=== PATIENT | male | born 1935 | race African-American/Black ===

== ENCOUNTER → 2017-01-21 | Outpatient (CLI) | payer OTHER | END | disposition home or self-care (01) | LOC: CFH 13:53 | PROVIDERS: ATTEND Nurse Practitioner | DX: J96.11 Chronic respiratory failure with hypoxia (principal) | CPT/HCPCS: 71250 ==

== ENCOUNTER → 2017-05-27 | Outpatient (CLI) | payer OTHER ==
[~2017-05-27] MED LIST: REGADENOSON 0.4 MG/5 ML SYRINGE ONE
== END | disposition home or self-care (01) ==
LOC: CVU 09:59
PROVIDERS: ATTEND Internal Medicine Cardiovascular Disease
DX: J96.11 Chronic respiratory failure with hypoxia (principal); I51.7 Cardiomegaly
CPT/HCPCS: 78452; 93017; 93306; A9502; J2785

== ENCOUNTER → 2017-07-27 | Outpatient (CLI) | payer OTHER | END | disposition home or self-care (01) | LOC: CVU 09:12 | PROVIDERS: ATTEND Internal Medicine Cardiovascular Disease | DX: I87.2 Venous insufficiency (chronic) (peripheral) (principal); I83.893 Varicose veins of bilateral lower extremities with other complications | CPT/HCPCS: 93970 ==

== ENCOUNTER 2017-12-12 17:51 | Inpatient (IN) | payer OTHER ==
[~2017-12-12] VITALS: Ht 180.3 cm; Wt 128.9 kg
[2017-12-12] MEDS ORDERED: PLEASE ENTER ALLERGIES MC SCH (18:30)
[2017-12-12] MEDS ORDERED: SODIUM CHLORIDE FLUSH 10ML SYR IVF ONE (18:30)
[2017-12-12 18:42] LABS: BASOPHILS # (AUTO) 0.02 x10^3/uL (0-0.1); BASOPHILS % (AUTO) 0 % (0-1); EOSINOPHILS # (AUTO) 0.14 x10^3/uL (0-0.4); EOSINOPHILS % (AUTO) 2 % (1-7); LYMPHOCYTES # (AUTO) 0.93 x10^3/uL (1-3.4); LYMPHOCYTES % (AUTO) 12 % (22-44); MD NO; MEAN CORPUSCULAR HGB CONC 33.1 g/dL (33.2-36.2); MEAN CORPUSCULAR VOLUME 90.5 fL (81-97); MEAN PLATELET VOLUME 8.5 fL (7.4-10.4); MONOCYTES # (AUTO) 0.62 x10^3/uL (0.2-0.8); MONOCYTES % (AUTO) 8 % (2-9); NEUTROPHILS % (AUTO) 77 % (42-75); PLATELET COUNT 185 x10^3/uL (130-400); RED BLOOD COUNT 4.82 x10^6/uL (4.38-5.82); RED CELL DISTRIBUTION WIDTH 14.2 % (9.4-14.8)
[2017-12-12 18:57] LABS: ALBUMIN 3.3 g/dL (3.4-5.0); ANION GAP 5 mmol/L (5-15); CALCIUM 8.4 mg/dL (8.5-10.1); CHLORIDE 111 mmol/L (98-107)
[2017-12-12 19:08] LABS: TROPONIN I 0.143 ng/mL (0.000-0.045)
[2017-12-12] MEDS ORDERED: SODIUM CHLORIDE 0.9% 1,000 ML IV SCH (19:11)
[2017-12-12] MEDS ORDERED: LABETALOL 5MG/ML, 20ML IVPush PRN (19:30)
[2017-12-12] MEDS ORDERED: ONDANSETRON ODT 4 MG PO PRN (19:30)
[2017-12-12] MEDS ORDERED: SODIUM CHLORIDE FLUSH 10ML SYR IVF PRN (19:30)
[2017-12-12] MEDS ORDERED: hydrALAzine 20 MG/ML, 1ML IVPush PRN (19:30)
[2017-12-12] MEDS ORDERED: morphine SULFATE 10 MG/ML, 1ML IVPush PRN (19:30)
[2017-12-12] MEDS ORDERED: OXYcodone IR 5MG TABLET PO PRN (19:30)
[2017-12-12] MEDS ORDERED: ONDANSETRON 2MG/ML, 2ML IVPush PRN (19:30)
[2017-12-12] MEDS ORDERED: PROMETHAZINE 25 MG/ML, 1ML IM PRN (19:30)
[2017-12-12] MEDS ORDERED: POLYETHYLENE GLYCOL 17 GM PACKET PO PRN (19:30)
[2017-12-12] MEDS ORDERED: BISACODYL 10 MG SUPP PR PRN (19:30)
[2017-12-12] MEDS ORDERED: HEPARIN 5,000 UNITS/ML, 1ML ONE (19:54)
[2017-12-12] MEDS ORDERED: HEPARIN 25,000 UNITS/500ML PMX 500 ML ONE (19:54)
[2017-12-12 20:00] LABS: FREE T4 (FREE THYROXINE) 1.03 ng/dL (0.76-1.46); THYROID STIMULATING HORMONE 1.9 mIU/L (0.358-3.740)
[2017-12-12] MEDS ORDERED: HEPARIN 5,000 UNITS/ML, 1ML IV ONE (20:00)
[2017-12-12] MEDS: HEPARIN 25,000 UNITS/500ML PMX 500 ML IV PRN (20:05)
[2017-12-12 22:00] VITALS: BP 139/90
[2017-12-12] MEDS ORDERED: [UNRECOGNIZED DRUG - REMARK] INH (22:25)
[2017-12-12 22:40] LABS: MICROSCOPIC NOT IND
[2017-12-12 22:49] LABS: CULTURE INDICATED? NO
[2017-12-12] MEDS: DILTIAZEM 125 MG in SODIUM CHLORIDE 0.9% 100 ML IV SCH (22:53)
[2017-12-12 23:13] LABS: TROPONIN I 0.149 ng/mL (0.000-0.045)
[2017-12-13] MEDS ORDERED: FUROSEMIDE 40 MG/4 ML IV ONE (02:00)
[2017-12-13 02:13] VITALS: BP 128/89
[2017-12-13 05:22] LABS: BASOPHILS # (AUTO) 0.04 x10^3/uL (0-0.1); BASOPHILS % (AUTO) 1 % (0-1); EOSINOPHILS # (AUTO) 0.25 x10^3/uL (0-0.4); EOSINOPHILS % (AUTO) 3 % (1-7); LYMPHOCYTES # (AUTO) 0.72 x10^3/uL (1-3.4); LYMPHOCYTES % (AUTO) 10 % (22-44); MD NO; MEAN CORPUSCULAR HEMOGLOBIN 29.8 pg (27.5-34.5); MEAN CORPUSCULAR HGB CONC 33.2 g/dL (33.2-36.2); MEAN CORPUSCULAR VOLUME 89.8 fL (81-97); MEAN PLATELET VOLUME 9.3 fL (7.4-10.4); MONOCYTES # (AUTO) 0.54 x10^3/uL (0.2-0.8); MONOCYTES % (AUTO) 7 % (2-9); NEUTROPHILS # (AUTO) 5.96 x10^3/uL (1.8-6.8); NEUTROPHILS % (AUTO) 79 % (42-75); PLATELET COUNT 184 x10^3/uL (130-400); RED CELL DISTRIBUTION WIDTH 14.3 % (9.4-14.8)
[2017-12-13 05:25] LABS: ALBUMIN 3.4 g/dL (3.4-5.0); ANION GAP 6 mmol/L (5-15); CALCIUM 8.3 mg/dL (8.5-10.1); CHLORIDE 113 mmol/L (98-107)
[2017-12-13 05:32] LABS: ALANINE AMINOTRANSFERASE 43 U/L (12-78); ALKALINE PHOSPHATASE 120 U/L (45-117); BILIRUBIN,TOTAL 0.6 mg/dL (0.2-1.0); CHOL/HDL RATIO 3.8; CHOLESTEROL, TOTAL 127 mg/dL (140-239); CREATININE 1.24 mg/dL (0.7-1.3); HDL CHOL % 26 % (26-37); HDL CHOLESTEROL (DIRECT) 33 mg/dL (40-60); LDL CHOLESTEROL,CALCULATED 80 mg/dL (54-169); LDL/HDL RATIO 2.4 (0.5-3.0); TOTAL PROTEIN 6.7 g/dL (6.4-8.2); TRIGLYCERIDES 69 mg/dL (50-200); TROPONIN I 0.144 ng/mL (0.000-0.045); VLDL CHOLESTEROL 14 mg/dL (0-25)
[2017-12-13 07:00] VITALS: BP 153/76
[2017-12-13] MEDS: ALBUTEROL/IPRATROPIUM 2.5MG/0.5MG, 3 ML NPPB SCH ×4 (07:10→19:37)
[2017-12-13] MEDS: SENNA/DOCUSATE TABLET PO SCH (09:37)
[2017-12-13] MEDS: DILTIAZEM 125 MG in SODIUM CHLORIDE 0.9% 100 ML IV SCH (11:58)
[2017-12-13 13:53] VITALS: BP 112/66
[2017-12-13] MEDS: DILTIAZEM 60 MG TABLET PO SCH ×2 (16:17→20:26)
[2017-12-13] MEDS: HEPARIN 25,000 UNITS/500ML PMX 500 ML IV PRN (19:07)
[2017-12-13 19:30] VITALS: BP 124/76
[2017-12-13] MEDS ORDERED: FURO20TA3 PO (20:22)
[2017-12-13] MEDS ORDERED: OMEP40CA6 PO (20:22)
[2017-12-13] MEDS ORDERED: LISI-170 PO (20:22)
[2017-12-13] MEDS ORDERED: ALLO100T30 PO (20:22)
[2017-12-13] MEDS ORDERED: ALBU5SOL6 INH (20:22)
[2017-12-13] MEDS ORDERED: POTA20TA6 PO (20:22)
[2017-12-13] MEDS ORDERED: CHOL2000 PO (20:22)
[2017-12-13] MEDS ORDERED: DOXA2TAB9 PO (20:22)
[2017-12-14 00:50] VITALS: BP 118/75
[2017-12-14] MEDS: DILTIAZEM 125 MG in SODIUM CHLORIDE 0.9% 100 ML IV SCH (05:10)
[2017-12-14 05:52] LABS: TROPONIN I 0.127 ng/mL (0.000-0.045)
[2017-12-14] MEDS: ALBUTEROL/IPRATROPIUM 2.5MG/0.5MG, 3 ML NPPB SCH ×4 (06:40→19:03)
[2017-12-14 06:43] VITALS: BP 134/78
[2017-12-14] MEDS: HEPARIN 5,000 UNITS/ML, 1ML IV PRN ×2 (07:07→14:17)
[2017-12-14] MEDS ORDERED: REGADENOSON 0.4 MG/5 ML SYRINGE ONE (09:27)
[2017-12-14] MEDS: SENNA/DOCUSATE TABLET PO SCH (12:20)
[2017-12-14] MEDS: DILTIAZEM 60 MG TABLET PO SCH ×3 (12:42→20:34)
[2017-12-14 13:37] VITALS: BP 137/81
[2017-12-14] MEDS: HEPARIN 25,000 UNITS/500ML PMX 500 ML IV PRN (17:17)
[2017-12-14 18:55] VITALS: BP 139/88
[2017-12-15 01:47] VITALS: BP 127/75
[2017-12-15] MEDS: DILTIAZEM 125 MG in SODIUM CHLORIDE 0.9% 100 ML IV SCH (02:58)
[2017-12-15] MEDS: ALBUTEROL/IPRATROPIUM 2.5MG/0.5MG, 3 ML NPPB SCH (06:25)
[2017-12-15] MEDS: DILTIAZEM 60 MG TABLET PO SCH ×4 (06:37→21:24)
[2017-12-15] MEDS: HEPARIN 25,000 UNITS/500ML PMX 500 ML IV PRN (06:39)
[2017-12-15 07:39] VITALS: BP 116/70
[2017-12-15] MEDS: SENNA/DOCUSATE TABLET PO SCH (09:43)
[2017-12-15] MEDS: ALBUTEROL/IPRATROPIUM 2.5MG/0.5MG, 3 ML NPPB PRN (10:45)
[2017-12-15] MEDS ORDERED: DIGOXIN 0.25 MG/ML, 2ML IVPush ONE ×3 (11:00→23:55)
[2017-12-15] MEDS: FLUTICASONE/VILANTEROL 200-25MCG/INH INH SCH (11:26)
[2017-12-15] MEDS: APIXABAN 5 MG TABLET PO SCH ×2 (11:26→21:24)
[2017-12-15 12:38] VITALS: BP 104/63
[2017-12-15 19:00] VITALS: BP 126/72
[2017-12-15] MEDS: ACETAMINOPHEN 325 MG TABLET PO PRN (21:23)
[2017-12-16 00:46] VITALS: BP 134/77
[2017-12-16 05:09] LABS: ANION GAP 5 mmol/L (5-15); CALCIUM 8.7 mg/dL (8.5-10.1); CHLORIDE 110 mmol/L (98-107); CREATININE 1.03 mg/dL (0.7-1.3)
[2017-12-16] MEDS: ALBUTEROL/IPRATROPIUM 2.5MG/0.5MG, 3 ML NPPB PRN (06:27)
[2017-12-16] MEDS: DILTIAZEM 60 MG TABLET PO SCH ×2 (06:39→11:48)
[2017-12-16 08:49] VITALS: BP 159/95
[2017-12-16] MEDS: APIXABAN 5 MG TABLET PO SCH ×2 (08:54→19:59)
[2017-12-16] MEDS: FLUTICASONE/VILANTEROL 200-25MCG/INH INH SCH (08:54)
[2017-12-16] MEDS: DIGOXIN 0.125 MG TABLET PO SCH (08:54)
[2017-12-16] MEDS: SENNA/DOCUSATE TABLET PO SCH (08:54)
[2017-12-16] MEDS: FUROSEMIDE 20 MG TABLET PO SCH (10:08)
[2017-12-16 13:00] VITALS: BP 134/80
[2017-12-16] MEDS: DILTIAZEM 90 MG TABLET PO SCH (19:59)
[2017-12-16] MEDS: ACETAMINOPHEN 325 MG TABLET PO PRN (21:26)
[2017-12-16 23:41] VITALS: BP 148/82
[2017-12-17] MEDS: DILTIAZEM 90 MG TABLET PO SCH ×4 (05:38→21:58)
[2017-12-17 05:43] LABS: ALBUMIN 3.1 g/dL (3.4-5.0); ANION GAP 6 mmol/L (5-15); CALCIUM 8.6 mg/dL (8.5-10.1); CHLORIDE 110 mmol/L (98-107); CREATININE 1.04 mg/dL (0.7-1.3)
[2017-12-17 05:48] LABS: BASOPHILS # (AUTO) 0.02 x10^3/uL (0-0.1); BASOPHILS % (AUTO) 0 % (0-1); EOSINOPHILS # (AUTO) 0.21 x10^3/uL (0-0.4); EOSINOPHILS % (AUTO) 3 % (1-7); LYMPHOCYTES # (AUTO) 0.61 x10^3/uL (1-3.4); LYMPHOCYTES % (AUTO) 9 % (22-44); MD NO; MEAN CORPUSCULAR HEMOGLOBIN 30.1 pg (27.5-34.5); MEAN CORPUSCULAR HGB CONC 32.9 g/dL (33.2-36.2); MEAN CORPUSCULAR VOLUME 91.8 fL (81-97); MONOCYTES # (AUTO) 0.58 x10^3/uL (0.2-0.8); MONOCYTES % (AUTO) 8 % (2-9); NEUTROPHILS # (AUTO) 5.57 x10^3/uL (1.8-6.8); NEUTROPHILS % (AUTO) 80 % (42-75); PLATELET COUNT 187 x10^3/uL (130-400); RED BLOOD COUNT 4.72 x10^6/uL (4.38-5.82); RED CELL DISTRIBUTION WIDTH 14.1 % (9.4-14.8)
[2017-12-17] MEDS: FLUTICASONE/VILANTEROL 200-25MCG/INH INH SCH (07:58)
[2017-12-17] MEDS: DIGOXIN 0.125 MG TABLET PO SCH (07:58)
[2017-12-17] MEDS: SENNA/DOCUSATE TABLET PO SCH (07:58)
[2017-12-17] MEDS: FUROSEMIDE 20 MG TABLET PO SCH (07:58)
[2017-12-17] MEDS: APIXABAN 5 MG TABLET PO SCH ×2 (07:58→21:58)
[2017-12-17 08:17] VITALS: BP 144/87
[2017-12-17] MEDS ORDERED: SODIUM CHLORIDE 0.9%, 500ML IVBOLUS ONE (11:30)
[2017-12-17 12:45] VITALS: BP 158/90
[2017-12-17] MEDS ORDERED: LACTATED RINGERS 500 ML IVBOLUS ONE (14:30)
[2017-12-17] MEDS: METOPROLOL TARTRATE 25 MG TABLET PO SCH ×3 (15:23→21:59)
[2017-12-17 19:07] VITALS: BP 152/84
[2017-12-18] VITALS (7 sets, daily range): BP systolic 119–164; BP diastolic 71–86
[2017-12-18] MEDS: SENNA/DOCUSATE TABLET PO SCH (07:32)
[2017-12-18] MEDS: METOPROLOL TARTRATE 25 MG TABLET PO SCH ×2 (08:14→21:44)
[2017-12-18] MEDS: DILTIAZEM 90 MG TABLET PO SCH (08:14)
[2017-12-18] MEDS: APIXABAN 5 MG TABLET PO SCH ×2 (08:14→21:43)
[2017-12-18] MEDS: FLUTICASONE/VILANTEROL 200-25MCG/INH INH SCH (08:14)
[2017-12-18] MEDS ORDERED: DILTIAZEM 60 MG TABLET PO SCH (11:00)
[2017-12-18] MEDS: DILTIAZEM 30 MG TABLET PO SCH ×2 (17:45→23:39)
[2017-12-19 00:51] VITALS: BP 136/74
[2017-12-19 04:57] LABS: BASOPHILS # (AUTO) 0.03 x10^3/uL (0-0.1); BASOPHILS % (AUTO) 0 % (0-1); EOSINOPHILS # (AUTO) 0.23 x10^3/uL (0-0.4); EOSINOPHILS % (AUTO) 3 % (1-7); LYMPHOCYTES # (AUTO) 0.81 x10^3/uL (1-3.4); LYMPHOCYTES % (AUTO) 10 % (22-44); MD NO; MEAN CORPUSCULAR HEMOGLOBIN 29.7 pg (27.5-34.5); MEAN CORPUSCULAR HGB CONC 32.9 g/dL (33.2-36.2); MEAN CORPUSCULAR VOLUME 90.4 fL (81-97); MEAN PLATELET VOLUME 8.7 fL (7.4-10.4); MONOCYTES % (AUTO) 10 % (2-9); NEUTROPHILS # (AUTO) 6.45 x10^3/uL (1.8-6.8); NEUTROPHILS % (AUTO) 78 % (42-75); PLATELET COUNT 215 x10^3/uL (130-400); RED BLOOD COUNT 4.74 x10^6/uL (4.38-5.82); RED CELL DISTRIBUTION WIDTH 14.2 % (9.4-14.8)
[2017-12-19 05:07] LABS: ANION GAP 4 mmol/L (5-15); CALCIUM 8.1 mg/dL (8.5-10.1); CHLORIDE 110 mmol/L (98-107)
[2017-12-19 05:10] LABS: ALANINE AMINOTRANSFERASE 55 U/L (12-78); ALKALINE PHOSPHATASE 117 U/L (45-117); BILIRUBIN,TOTAL 0.7 mg/dL (0.2-1.0); CREATININE 1.11 mg/dL (0.7-1.3); TOTAL PROTEIN 6.5 g/dL (6.4-8.2)
[2017-12-19 06:30] VITALS: BP 145/87
[2017-12-19] MEDS: DILTIAZEM 30 MG TABLET PO SCH ×2 (06:42→13:26)
[2017-12-19] MEDS: SENNA/DOCUSATE TABLET PO SCH (07:58)
[2017-12-19] MEDS ORDERED: ALBUTEROL/IPRATROPIUM 2.5MG/0.5MG, 3 ML NPPB PRN (08:00)
[2017-12-19] MEDS: FLUTICASONE/VILANTEROL 200-25MCG/INH INH SCH (08:03)
[2017-12-19] MEDS: APIXABAN 5 MG TABLET PO SCH ×2 (08:03→20:31)
[2017-12-19] MEDS: METOPROLOL TARTRATE 25 MG TABLET PO SCH ×2 (08:04→20:32)
[2017-12-19 13:12] VITALS: BP 132/78
[2017-12-19 17:35] VITALS: BP 132/90
[2017-12-19] MEDS: DILTIAZEM 90 MG TABLET PO SCH (17:36)
[2017-12-19 18:10] VITALS: BP_SYST 154; BP_SYST 54; BP_DIAS 79
[2017-12-19 20:27] VITALS: BP 151/84
[2017-12-20] MEDS: DILTIAZEM 90 MG TABLET PO SCH ×5 (00:13→20:50)
[2017-12-20 00:18] VITALS: BP 114/77
[2017-12-20 05:58] VITALS: BP 130/78
[2017-12-20 07:23] LABS: ALBUMIN 3.1 g/dL (3.4-5.0); ANION GAP 3 mmol/L (5-15); CALCIUM 8.6 mg/dL (8.5-10.1); CHLORIDE 110 mmol/L (98-107); CREATININE 1.02 mg/dL (0.7-1.3)
[2017-12-20 08:47] VITALS: BP 148/80
[2017-12-20] MEDS: SENNA/DOCUSATE TABLET PO SCH (08:53)
[2017-12-20] MEDS: FLUTICASONE/VILANTEROL 200-25MCG/INH INH SCH (08:53)
[2017-12-20] MEDS: METOPROLOL TARTRATE 25 MG TABLET PO SCH ×2 (08:54→20:49)
[2017-12-20] MEDS: APIXABAN 5 MG TABLET PO SCH ×2 (08:54→20:51)
[2017-12-20 14:09] VITALS: BP 120/77
[2017-12-20 19:36] VITALS: BP 121/73
[2017-12-21 01:22] VITALS: BP 159/74
[2017-12-21 05:04] LABS: ALBUMIN 3.2 g/dL (3.4-5.0); ANION GAP 4 mmol/L (5-15); CALCIUM 8.6 mg/dL (8.5-10.1); CHLORIDE 109 mmol/L (98-107)
[2017-12-21 05:05] LABS: CREATININE 1.09 mg/dL (0.7-1.3)
[2017-12-21 06:30] VITALS: BP 131/88
[2017-12-21] MEDS: DILTIAZEM 90 MG TABLET PO SCH ×3 (06:33→14:58)
[2017-12-21] MEDS: METOPROLOL TARTRATE 25 MG TABLET PO SCH (09:21)
[2017-12-21] MEDS: SENNA/DOCUSATE TABLET PO SCH (09:21)
[2017-12-21] MEDS: APIXABAN 5 MG TABLET PO SCH (09:22)
[2017-12-21] MEDS: FLUTICASONE/VILANTEROL 200-25MCG/INH INH SCH (09:23)
[2017-12-21] MEDS ORDERED: ACID1TAB3 PO (11:21)
[2017-12-21] MEDS ORDERED: APIX5TAB PO (11:21)
[2017-12-21] MEDS ORDERED: CARV12.5 PO (11:21)
[2017-12-21 12:30] VITALS: BP 122/27
== END 2017-12-21 16:11 | DRG 175 ==
LOC: ED 18:19 → EDIP 19:01 → 5SO 20:21
PROVIDERS: ADMIT Internal Medicine; ATTEND Internal Medicine
PROC: 5A09357 Assistance with Respiratory Ventilation, Less than 24 Consecutive Hours, Continuous Positive Airway Pressure (ICD-10-PCS; principal; 2017-12-20)
DX: I26.99 Other pulmonary embolism without acute cor pulmonale (principal); J96.21 Acute and chronic respiratory failure with hypoxia; E44.0 Moderate protein-calorie malnutrition; I48.92 Unspecified atrial flutter; J98.11 Atelectasis; I48.91 Unspecified atrial fibrillation; I87.2 Venous insufficiency (chronic) (peripheral); Z99.81 Dependence on supplemental oxygen; G47.30 Sleep apnea, unspecified; J44.9 Chronic obstructive pulmonary disease, unspecified; Z79.01 Long term (current) use of anticoagulants; R53.81 Other malaise; Z68.39 Body mass index [BMI] 39.0-39.9, adult
CPT/HCPCS: 36415; 71045; 78452; 80048; 80053; 80061; 81003; 82040; 83036; 83735; 83880; 84439; 84443; 84484; 85025; 85520; 93005; 93017; 93306; 94640; 99285; J1644; J1940; J2785; J7120; J7620; A9502; C9898; J1160; J7030

== ENCOUNTER 2019-05-30 15:15 | Emergency (ER) | payer MEDICARE, OTHER ==
[~2019-05-30] VITALS: Ht 182.9 cm; Wt 129.1 kg
[~2019-05-30 15:15] MED LIST changes: +ACID1TAB3 PO; +ALBU5SOL6 INH; +ALLO100T30 PO; +APIX5TAB PO; +CARV12.5 PO; +CHOL2000 PO; +DOXA2TAB9 PO; +FURO20TA3 PO; +LISI-170 PO; +OMEP40CA42 PO; +POTA20TA6 PO; -REGADENOSON 0.4 MG/5 ML SYRINGE ONE; +[UNRECOGNIZED DRUG - REMARK] INH
--- NOTE | 2019-05-30 15:56 | NUR ---
Pt to T-1 from [facility]
[2019-05-30 16:20] LABS: ALBUMIN 3.4 g/dL (3.4-5.0); ANION GAP 4 mmol/L (5-15); BASOPHILS # (AUTO) 0.02 x10^3/uL (0-0.1); BASOPHILS % (AUTO) 0 % (0-1); CALCIUM 8.4 mg/dL (8.5-10.1); CHLORIDE 114 mmol/L (98-107); EOSINOPHILS # (AUTO) 0.28 x10^3/uL (0-0.4); EOSINOPHILS % (AUTO) 4 % (1-7); LYMPHOCYTES # (AUTO) 1.21 x10^3/uL (1-3.4); LYMPHOCYTES % (AUTO) 16 % (22-44); MD NO; MEAN CORPUSCULAR HEMOGLOBIN 30.5 pg (27.5-34.5); MEAN CORPUSCULAR HGB CONC 32.6 g/dL (33.2-36.2); MEAN CORPUSCULAR VOLUME 93.4 fL (81-97); MONOCYTES % (AUTO) 11 % (2-9); NEUTROPHILS # (AUTO) 5.33 x10^3/uL (1.8-6.8); NEUTROPHILS % (AUTO) 70 % (42-75); PLATELET COUNT 164 x10^3/uL (130-400); RED BLOOD COUNT 5.11 x10^6/uL (4.38-5.82); RED CELL DISTRIBUTION WIDTH 14.3 % (9.4-14.8)
[2019-05-30 16:26] LABS: ALANINE AMINOTRANSFERASE 24 U/L (12-78); ALKALINE PHOSPHATASE 129 U/L (45-117); BILIRUBIN,TOTAL 0.6 mg/dL (0.2-1.0); TOTAL PROTEIN 7.2 g/dL (6.4-8.2); TROPONIN I 0.056 ng/mL (0.000-0.045)
[2019-05-30] MEDS ORDERED: FUROSEMIDE 40 MG/4 ML IV ONE (16:30)
--- NOTE | 2019-05-30 16:30 | NUR ---
SENT FROM [facility]: 10 POUND WEIGHT GAIN IN 2 WEEKS, INCREASED BILATERAL PEDAL EDEMA, SOB AT NIGHT.
[2019-05-30] MEDS ORDERED: DILT-8 PO (16:38)
[2019-05-30] MEDS ORDERED: FURO40TA6 PO (16:38)
[2019-05-30] MEDS ORDERED: FUROSEMIDE 40 MG/4 ML ONE ×2 (16:50→16:51)
--- NOTE | 2019-05-30 17:24 | NUR ---
PT GIVEN LASIX NOTED ON AUG. FAMILY AT BEDSIDE. CONTINUE TO MONITOR
--- NOTE | 2019-05-30 17:54 | NUR ---
AMBULATED TO BATHROOM WITHOUT ASSISTANCE. SOME SOB NOTED WHEN RETURNED TO [facility] BUT RECOVERED WELL
--- NOTE | 2019-05-30 17:55 | NUR ---
MD RE-EVALUATING PT AND DISCUSSING TEST RESULTS. TO BE DISCHARGED.
[2019-05-30 18:05] VITALS: BP 148/102
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
== END 2019-05-30 18:29 | disposition home or self-care (01) ==
LOC: ED 18:23
DX: R06.00 Dyspnea, unspecified (principal); J44.9 Chronic obstructive pulmonary disease, unspecified; Z72.89 Other problems related to lifestyle; I10 Essential (primary) hypertension
CPT/HCPCS: 36415; 71045; 80053; 83880; 84484; 85025; 93005; 96374; 99284; J1940

== ENCOUNTER 2019-10-13 13:01 | Emergency (ER) | payer MEDICARE ==
[~2019-10-13] VITALS: Ht 180.3 cm; Wt 129.3 kg
[~2019-10-13 13:01] MED LIST changes: +DILT-8 PO; +FURO40TA6 PO
[2019-10-13] MEDS ORDERED: DILT360C26 PO (14:00)
[2019-10-13 14:10] LABS: BASOPHILS # (AUTO) 0.02 x10^3/uL (0-0.1); BASOPHILS % (AUTO) 0 % (0-1); EOSINOPHILS # (AUTO) 0.22 x10^3/uL (0-0.4); EOSINOPHILS % (AUTO) 3 % (1-7); LYMPHOCYTES # (AUTO) 0.78 x10^3/uL (1-3.4); LYMPHOCYTES % (AUTO) 12 % (22-44); MD NO; MEAN CORPUSCULAR HEMOGLOBIN 30.8 pg (27.5-34.5); MEAN CORPUSCULAR HGB CONC 33.4 g/dL (33.2-36.2); MEAN PLATELET VOLUME 8.5 fL (7.4-10.4); MONOCYTES # (AUTO) 0.61 x10^3/uL (0.2-0.8); MONOCYTES % (AUTO) 9 % (2-9); NEUTROPHILS # (AUTO) 4.91 x10^3/uL (1.8-6.8); NEUTROPHILS % (AUTO) 75 % (42-75); PLATELET COUNT 183 x10^3/uL (130-400); RED BLOOD COUNT 4.89 x10^6/uL (4.38-5.82)
[2019-10-13 14:18] LABS: ALBUMIN 3.5 g/dL (3.4-5.0); ANION GAP 4 mmol/L (5-15); CALCIUM 8.8 mg/dL (8.5-10.1); CHLORIDE 111 mmol/L (98-107)
[2019-10-13 14:18] LABS: MICROSCOPIC NOT IND
[2019-10-13 14:22] LABS: CULTURE INDICATED? NO
[2019-10-13 14:23] LABS: ALANINE AMINOTRANSFERASE 17 U/L (12-78); ALKALINE PHOSPHATASE 136 U/L (45-117); BILIRUBIN,TOTAL 0.8 mg/dL (0.2-1.0); CREATININE 1.18 mg/dL (0.7-1.3); TOTAL PROTEIN 7.3 g/dL (6.4-8.2)
--- NOTE | 2019-10-13 15:49 | NUR ---
XR RESULTS BACK, PT FOR RECHECK.
[2019-10-13 17:08] VITALS: BP 145/74
== END 2019-10-13 17:11 | disposition home or self-care (01) ==
LOC: ED 13:53
DX: I87.2 Venous insufficiency (chronic) (peripheral) (principal); I10 Essential (primary) hypertension; R00.0 Tachycardia, unspecified; I48.91 Unspecified atrial fibrillation; J44.9 Chronic obstructive pulmonary disease, unspecified
CPT/HCPCS: 36415; 71045; 80053; 81003; 83880; 85025; 93005; 93970; 99285

== ENCOUNTER → 2020-08-08 | Outpatient (CLI) | payer MEDICARE ==
[~2020-08-08] MED LIST changes: +DILT360C26 PO
== END | disposition home or self-care (01) ==
LOC: CVU 12:16
PROVIDERS: ATTEND Registered Nurse
DX: I08.3 Combined rheumatic disorders of mitral, aortic and tricuspid valves (principal); R60.0 Localized edema
CPT/HCPCS: 93306

== ENCOUNTER 2020-11-16 11:13 | Inpatient (IN) | payer MEDICARE ==
[~2020-11-16] VITALS: Ht 180.3 cm; Wt 118.5 kg
[~2020-11-16 11:13] MED LIST changes: +ALBUTEROL; +BEVESPI; +CARV-39 PO; +FURO80TA3 PO; -OMEP40CA42 PO; +OMEP40CA8 PO
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
[2020-11-16 11:57] LABS: BASOPHILS % (AUTO) 0 % (0-1); EOSINOPHILS % (AUTO) 1 % (1-7); LYMPHOCYTES % (AUTO) 7 % (22-44); MEAN CORPUSCULAR HEMOGLOBIN 31.4 pg (27.5-34.5); MEAN CORPUSCULAR HGB CONC 34.6 g/dL (33.2-36.2); MEAN PLATELET VOLUME 8.6 fL (7.4-10.4); MONOCYTES % (AUTO) 10 % (2-9); NEUTROPHILS % (AUTO) 82 % (42-75); PLATELET COUNT 155 x10^3/uL (130-400); RED BLOOD COUNT 4.97 x10^6/uL (4.38-5.82); RED CELL DISTRIBUTION WIDTH 13.9 % (9.4-14.8)
[2020-11-16 12:07] LABS: ALANINE AMINOTRANSFERASE 37 U/L (12-78); ALBUMIN 3.1 g/dL (3.4-5.0); CALCIUM 8.7 mg/dL (8.5-10.1); CHLORIDE 87 mmol/L (98-107)
[2020-11-16 12:12] LABS: ALKALINE PHOSPHATASE 119 U/L (45-117); BILIRUBIN,TOTAL 1.4 mg/dL (0.2-1.0); TOTAL PROTEIN 7.5 g/dL (6.4-8.2)
[2020-11-16 12:29] LABS: ANION GAP 6 mmol/L (5-15)
[2020-11-16] MEDS ORDERED: SODIUM CHLORIDE 0.9% 1,000ML IVBOLUS ONE (12:30)
--- NOTE | 2020-11-16 12:36 | NUR ---
PT BP LOW, MAP 63. ERMD NOTIFIED. IVF STARTED PER AUG. THIS IS THE SECOND LITER PT HAS RECEIVED, THE FIRST WAS STARTED [place] VESSEL PILOT WITH EMS AND COMPLETED IN ED. PT RESTING ON GURNEY. RESP EVEN AND UNLABORED. COMMUNICATIONS SCIENTIST AT BEDSIDE FOR REPEAT EKG.
--- NOTE | 2020-11-16 12:49 | NUR ---
PT PROVIDED URINE SAMPLE. UA COLLECTED AND SENT TO LAB. PT RESTING ON [place]. RESP EVEN AND UNLABORED.
[2020-11-16 13:00] LABS: MICROSCOPIC NOT IND
[2020-11-16] MEDS ORDERED: POTASSIUM CHLORIDE 40 MEQ in SODIUM CHLORIDE 0.9% 500 ML IV ONE (13:00)
--- NOTE | 2020-11-16 13:06 | NUR ---
ALL RESULTS ARE BACK AT THIS TIME. CHART UP FOR RECHECK.
--- NOTE | 2020-11-16 13:24 | NUR ---
PT ADMIT. IV POTASSIUM ADMIN PER AUG. PT RESTING COMFORTABLY ON GURNEY. RESP EVEN AND UNLABORED. DENIES FURTHER NEEDS AT THIS TIME.
--- NOTE | 2020-11-16 14:19 | NUR ---
REPORT GIVEN TO ELIAS PEREA. PT RTG TO ROOM 484-1
--- NOTE | 2020-11-16 14:22 | NUR ---
HOSPITALIST AT BEDSIDE.
[2020-11-16] MEDS ORDERED: ONDANSETRON ODT 4 MG PO PRN (15:00)
[2020-11-16] MEDS ORDERED: ONDANSETRON 2MG/ML, 2ML IVPush PRN (15:00)
[2020-11-16] MEDS ORDERED: POLYETHYLENE GLYCOL 17 GM PACKET PO PRN (15:00)
[2020-11-16] MEDS ORDERED: SENNA/DOCUSATE TABLET PO PRN (15:00)
[2020-11-16] MEDS: NS + 40MEQ KCL 1,000 ML IV SCH (17:33)
[2020-11-16 19:45] VITALS: BP 97/55
[2020-11-16] MEDS: APIXABAN 2.5 MG TABLET PO SCH (20:47)
[2020-11-17 01:13] VITALS: BP 100/60
[2020-11-17] MEDS: NS + 40MEQ KCL 1,000 ML IV SCH (05:00)
[2020-11-17 06:01] LABS: BASOPHILS % (AUTO) 1 % (0-1); EOSINOPHILS % (AUTO) 3 % (1-7); LYMPHOCYTES % (AUTO) 11 % (22-44); MEAN CORPUSCULAR HEMOGLOBIN 31.4 pg (27.5-34.5); MEAN CORPUSCULAR HGB CONC 34.2 g/dL (33.2-36.2); MEAN PLATELET VOLUME 8.8 fL (7.4-10.4); MONOCYTES % (AUTO) 10 % (2-9); NEUTROPHILS % (AUTO) 75 % (42-75); PLATELET COUNT 150 x10^3/uL (130-400); RED BLOOD COUNT 4.55 x10^6/uL (4.38-5.82); RED CELL DISTRIBUTION WIDTH 13.8 % (9.4-14.8)
[2020-11-17 06:11] LABS: CHLORIDE 95 mmol/L (98-107)
[2020-11-17 06:19] LABS: ALANINE AMINOTRANSFERASE 29 U/L (12-78); ALBUMIN 2.7 g/dL (3.4-5.0); ALKALINE PHOSPHATASE 102 U/L (45-117); ANION GAP 4 mmol/L (5-15); BILIRUBIN,TOTAL 1.1 mg/dL (0.2-1.0); CALCIUM 8.6 mg/dL (8.5-10.1); CREATININE 1.46 mg/dL (0.7-1.3); TOTAL PROTEIN 6.3 g/dL (6.4-8.2)
[2020-11-17] MEDS ORDERED: POTASSIUM CHLORIDE 40 MEQ in SODIUM CHLORIDE 0.9% 500 ML IV ONE (07:00)
[2020-11-17 07:04] VITALS: BP 111/72
[2020-11-17] MEDS ORDERED: ALBUTEROL SULFATE 2.5 MG/3 ML NPPB PRN (08:30)
[2020-11-17] MEDS: APIXABAN 2.5 MG TABLET PO SCH ×2 (09:53→20:52)
[2020-11-17] MEDS: POTASSIUM CHLORIDE 20 MEQ TAB.ER.PRT PO SCH ×2 (09:53→17:54)
[2020-11-17 12:21] VITALS: BP 105/62
[2020-11-17 19:13] VITALS: BP 102/72
[2020-11-18 01:20] VITALS: BP 118/80
[2020-11-18] MEDS: NS + 40MEQ KCL 1,000 ML IV SCH (03:15)
[2020-11-18 07:43] VITALS: BP 111/78
[2020-11-18] MEDS: APIXABAN 2.5 MG TABLET PO SCH ×2 (08:50→20:34)
[2020-11-18] MEDS: POTASSIUM CHLORIDE 20 MEQ TAB.ER.PRT PO SCH ×2 (08:51→16:55)
[2020-11-18 10:16] LABS: BASOPHILS % (AUTO) 1 % (0-1); EOSINOPHILS % (AUTO) 2 % (1-7); LYMPHOCYTES % (AUTO) 8 % (22-44); MEAN CORPUSCULAR HEMOGLOBIN 31.4 pg (27.5-34.5); MEAN CORPUSCULAR HGB CONC 33.9 g/dL (33.2-36.2); MEAN PLATELET VOLUME 8.6 fL (7.4-10.4); MONOCYTES % (AUTO) 7 % (2-9); NEUTROPHILS % (AUTO) 82 % (42-75); PLATELET COUNT 171 x10^3/uL (130-400); RED CELL DISTRIBUTION WIDTH 14.1 % (9.4-14.8)
[2020-11-18 10:25] LABS: ALBUMIN 3.1 g/dL (3.4-5.0); ANION GAP 4 mmol/L (5-15); CALCIUM 9.4 mg/dL (8.5-10.1); CHLORIDE 104 mmol/L (98-107)
[2020-11-18 10:29] LABS: ALANINE AMINOTRANSFERASE 35 U/L (12-78); ALKALINE PHOSPHATASE 115 U/L (45-117); CREATININE 1.25 mg/dL (0.7-1.3); TOTAL PROTEIN 7.3 g/dL (6.4-8.2)
[2020-11-18] MEDS: CARVEDILOL 25 MG TABLET PO SCH ×2 (12:14→18:01)
[2020-11-18] MEDS ORDERED: OMNIPAQUE 350 MG/ML, 75ML BOTTLE ONE (13:51)
[2020-11-18 18:47] VITALS: BP 116/71
[2020-11-19] MEDS: ACETAMINOPHEN 325 MG TABLET PO PRN (01:25)
[2020-11-19 01:32] VITALS: BP 120/86
[2020-11-19 05:43] VITALS: BP_SYST 101; BP_DIAS 6; BP_DIAS 65
[2020-11-19] MEDS: CARVEDILOL 25 MG TABLET PO SCH (05:43)
[2020-11-19 06:28] VITALS: BP 110/69
[2020-11-19 07:58] LABS: BASOPHILS % (AUTO) 1 % (0-1); EOSINOPHILS % (AUTO) 3 % (1-7); LYMPHOCYTES % (AUTO) 13 % (22-44); MEAN CORPUSCULAR HEMOGLOBIN 31.5 pg (27.5-34.5); MEAN CORPUSCULAR HGB CONC 34.3 g/dL (33.2-36.2); MEAN PLATELET VOLUME 8.5 fL (7.4-10.4); MONOCYTES % (AUTO) 8 % (2-9); NEUTROPHILS % (AUTO) 75 % (42-75); PLATELET COUNT 152 x10^3/uL (130-400); RED BLOOD COUNT 4.61 x10^6/uL (4.38-5.82); RED CELL DISTRIBUTION WIDTH 14.1 % (9.4-14.8)
[2020-11-19 08:07] LABS: ALBUMIN 2.8 g/dL (3.4-5.0); CALCIUM 8.9 mg/dL (8.5-10.1); CHLORIDE 108 mmol/L (98-107)
[2020-11-19 08:17] LABS: ALANINE AMINOTRANSFERASE 36 U/L (12-78); ALKALINE PHOSPHATASE 103 U/L (45-117); ANION GAP 4 mmol/L (5-15); BILIRUBIN,TOTAL 0.7 mg/dL (0.2-1.0); CREATININE 1.03 mg/dL (0.7-1.3); TOTAL PROTEIN 6.4 g/dL (6.4-8.2)
[2020-11-19] MEDS: DILTIAZEM 120 MG CAP.ER.24H PO SCH (08:23)
[2020-11-19] MEDS: APIXABAN 2.5 MG TABLET PO SCH ×2 (08:23→21:10)
[2020-11-19 12:27] VITALS: BP 94/65
[2020-11-19] MEDS: CARVEDILOL 12.5 MG TABLET PO SCH (18:00)
[2020-11-19 19:18] VITALS: BP 122/80
[2020-11-19] MEDS ORDERED: DOCUSATE 100 MG CAPSULE PO PRN (21:00)
[2020-11-20 01:22] VITALS: BP 121/71
[2020-11-20 05:35] VITALS: BP 112/53
[2020-11-20] MEDS: CARVEDILOL 12.5 MG TABLET PO SCH ×2 (05:40→17:18)
[2020-11-20 08:26] VITALS: BP 134/79
[2020-11-20] MEDS: APIXABAN 2.5 MG TABLET PO SCH ×2 (08:53→20:17)
[2020-11-20] MEDS: DILTIAZEM 120 MG CAP.ER.24H PO SCH (08:53)
[2020-11-20 14:30] VITALS: BP 105/72
[2020-11-20 18:43] VITALS: BP 109/93
[2020-11-20] MEDS: ACETAMINOPHEN 325 MG TABLET PO PRN (20:17)
[2020-11-21 00:54] VITALS: BP 105/69
[2020-11-21 05:20] VITALS: BP 96/57
[2020-11-21] MEDS: CARVEDILOL 12.5 MG TABLET PO SCH (05:23)
[2020-11-21] MEDS ORDERED: APIX2.5T PO (06:20)
[2020-11-21] MEDS ORDERED: DILT120C2 PO (06:20)
[2020-11-21] MEDS ORDERED: CARV12.52 PO ×2 (06:20)
== END 2020-11-21 07:00 | disposition home or self-care (01) | DRG 315 ==
LOC: ED 12:36 → EDIP 13:14 → 4EST 15:12
PROVIDERS: ADMIT Hospitalist; ATTEND Family Medicine
DX: I95.9 Hypotension, unspecified (principal); N17.9 Acute kidney failure, unspecified; D68.69 Other thrombophilia; E87.1 Hypo-osmolality and hyponatremia; I50.30 Unspecified diastolic (congestive) heart failure; J96.11 Chronic respiratory failure with hypoxia; G93.40 Encephalopathy, unspecified; D72.829 Elevated white blood cell count, unspecified; E86.0 Dehydration; E87.6 Hypokalemia; F03.90 Unspecified dementia, unspecified severity, without behavioral disturbance, psychotic disturbance, mood disturbance, and anxiety; I11.0 Hypertensive heart disease with heart failure; I48.0 Paroxysmal atrial fibrillation; E66.9 Obesity, unspecified; J44.9 Chronic obstructive pulmonary disease, unspecified; R94.5 Abnormal results of liver function studies; J94.9 Pleural condition, unspecified; R55 Syncope and collapse; Z86.711 Personal history of pulmonary embolism; Z90.49 Acquired absence of other specified parts of digestive tract; Z83.3 Family history of diabetes mellitus; Z68.35 Body mass index [BMI] 35.0-35.9, adult
CPT/HCPCS: 36415; 70450; 70551; 71045; 71260; 76700; 80053; 81003; 82607; 83735; 83880; 84443; 85025; 86592; 87040; 93005; 99285; G0378; J3480; Q9967; 92523-GN; J7030; J7040